=== PATIENT | female | born 1970 ===

== ENCOUNTER 2024-04-11 11:35 | Emergency (ER) | payer MEDICARE, SELFPAY ==
--- NOTE | 2024-04-11 11:40 | ED_ITS ---
HPI - General Adult General Chief complaint: Skin/Abscess/Foreign Body Stated complaint: REDDISH KENDRA ON L SIDE OF BREAST Time Seen by Provider: 04/11/24 11:40 Source: patient and EMS Mode of arrival: EMS Limitations: no limitations History of Present Illness ED Provider: Tami Dennis PA-C HPI narrative: Patient is a 53 year old assigned female at with a history of left nipple discharge presenting to the emergency department today with a rash to her left breast / chest and continued nipple discharge. Patient states that over the last 3 days she has had a left breast / chest rash that she has been treating with rubbing alcohol. Patient states that her left nipple has also been having bloody discharge and she was supposed to follow up with someone to rule out breast cancer but the appointment was cancelled. Patient denies any dizziness, lightheadedness, abdominal pain, nausea, vomiting, fever, chills, blurry vision, double vision, loss of vision, chest pain, difficulty breathing, shortness of breath, back pain, night sweats, pain with urination, increased urinary frequency, increased urinary urgency, blood in her urine or stool, syncope or a near syncopal episode, recent trauma or falls, bowel incontinence, bladder incontinence, or any other complaints at this time. Relieving factors: none Exacerbating factors: none Related Data Previous Rx's ?Medication ?Instructions ?Recorded prednisone 20 mg tablet 20 mg PO DAILY 7 days #7 tabs 04/11/24 valacyclovir 1 gram tablet 1,000 mg PO TID 7 days #21 tabs 04/11/24 Allergies Allergy/AdvReac Type Severity Reaction Status Date / Time bee pollen [bee stings] Allergy Hives Verified 04/11/24 11:51 Review of Systems 2 Constitutional: Constitutional: Reports no additional constitutional complaints, Denies chills, Denies fever(s) and Denies night sweats Eyes: Eyes: Reports no additional eye complaints, Denies blurry vision, Denies change in vision, Denies diplopia, Denies eye discharge, Denies loss of vision and Denies eye pain ENT: Denies dizziness Cardiovascular: Cardiovascular: Reports no additional cardiovascular complaints, Denies chest pain, Denies lightheadedness, Denies Loss of Consciousness and Denies dyspnea Respiratory: Respiratory: Reports no additional respiratory complaints and Denies dyspnea Gastrointestinal: Gastrointestinal: Reports no additional gastrointestinal complaints, Denies abdominal pain, Denies melena, Denies hematochezia, Denies change in bowel habits and Denies change in stool character Genitourinary: Genitourinary: Denies hematuria, Denies urinary frequency, Denies dysuria, Denies urinary incontinence, Denies urinary hesitancy and Denies urinary urgency Musculoskeletal: Musculoskeletal: Reports no additional musculoskeletal complaints, Denies numbness and Denies tingling Integumentary/Breasts: Comments: left breast rash left nippled discharge Neurologic: Denies dizziness, Denies loss of vision, Denies numbness and Denies tingling Psychiatric: Psychiatric: Reports no additional psychiatric complaints Endocrine: Endocrine: Reports no additional endocrine complaints Hematologic/Lymphatic: Hematologic/Lymphatic: Reports no additional hematologic/lymphatic complaints Allergic/Immunologic: Allergic/Immunologic: Reports no additional allergic/immunologic complaints PMFSH Past Medical History Attestation statement: The following information was validated with the patient. Source: old records reviewed and nursing notes reviewed Social History Social History Advance Directives: No Advance Directives Information Provided: No Physical Exam ED Vital Signs: Vital Signs - 24 hr 04/11/24 11:48 04/11/24 14:07 Temperature 98.0 F 98.0 F Pulse Rate 84 84 Respiratory Rate 16 16 Blood Pressure 92/63 92/63 Pulse Oximetry 100 100 Oxygen Delivery Method Room Air Room Air BMI result Body Mass Index 20.7 Const General: cooperative, no acute distress, alert and awake Nutritional Appearance: well nourished Orientation/consciousness: patient oriented x3 Limitations: no limitations [facility] Head: Yes normal to inspection and Yes atraumatic Ears: hearing grossly normal bilaterally and external ears normal General nose exam: Normal external nose present, no nasal discharge noted and no epistaxis Face and sinus: Yes normal facial exam, No abrasion and No laceration Mouth: Normal oral and palatal mucosa present, no drooling and no muffled voice Eyes General: appearance normal, both eyes and all related structures Periorbital: periorbital findings normal Eyelids: Yes eyelids normal Conjunctivae: conjunctivae normal Pupils: Equal, round and reactive pupils present EOM: EOMs intact bilaterally Neck Neck: Yes normal visual inspection, Yes full ROM and Yes no lymphadenopathy Chest Chest/axillae images: 2 1. herpetic type rash Resp Effort & Inspection: normal respiratory effort and able to speak in complete sentences GI Inspection: Yes normal to inspection Neuro General: patient oriented x3 and moves all extremities Cranial nerves: Yes Equal, round and reactive pupils present Cognition (Neuro): normal cognition Extrem General: Yes normal to inspection, Yes full ROM and Yes capillary refill normal Psych Appearance: grossly normal Mental Status: mental status grossly normal Affect: normal affect Attitude: cooperative Thought process: Normal thought process present Thought content: Normal thought content present Insight: Good insight present (Psych) Medications Administered Discontinued Medications Generic Name Dose Route Start Last Admin Trade Name Primo PRN Reason Stop Dose Admin Prednisone 60 mg 04/11/24 13:06 04/11/24 13:18 Prednisone 20 Mg Tablet PO 04/11/24 13:07 60 mg ONCE ONE Administration Valacyclovir HCl 1,000 mg 04/11/24 13:06 04/11/24 13:17 Valacyclovir Hcl 1,000 Mg Tablet PO 04/11/24 13:07 1,000 mg ONCE ONE Administration Medical Decision Making Medical Decision Making MDM Narrative: Patient is a 53 year old assigned female at with a history of left nipple discharge presenting to the emergency department today with a left breast rash and left nipple discharge. Patient's physical exam showed a rash to the left breast consistent with shingles. Patient's physical examination was done with a lining parts sewer present. I explained my physical exam findings to the patient. I answered all questions asked by the patient. I stressed the importance of the patient taking her medication as directed (either prescribed or as the over the counter packaging recommends). I stressed the importance of the patient following up with her primary care provider. I stressed the importance of the patient returning to the emergency department immediately if her symptoms were to worsen or if she were to develop any dizziness, shortness of breath, difficulty breathing, chest pain, blurry vision, loss of vision, nausea, vomiting, abdominal pain, fever, chills, back pain, or any other complaints. Patient verbalized agreement and understanding with this treatment plan and discharge. Differential Diagnosis Differential Diagnoses: The differential diagnosis associated with the presentation includes Rash Shingles Breast cancer Admission/Observation Consideration of admission/observation: Escalation of care including admission/observation considered Patient would have been admitted to the hospital had her clinical presentation warranted hospital admission. Prescription Management I considered prescription management with: Antiviral (patient prescribed valtrex) Discharge Plan Discharge Clinical Impression: Shingles, Discharge from nipple Patient Disposition: Home, Self-Care Instructions: Shingles (ED), Nipple Discharge (ED) Additional Instructions: Your rash is consistent with shingles. However, the discharge from your nipple is abnormal and concerning for breast cancer. Follow up with a primary care provider and a general surgeons office. Return to the emergency department immediately if your symptoms worsen or if you develop any dizziness, shortness of breath, difficulty breathing, chest pain, blurry vision, loss of vision, nausea, vomiting, abdominal pain, fever, chills, back pain, or any other complaints. Prescriptions: New valacyclovir 1 gram tablet 1,000 mg PO TID 7 Days Qty: 21 0RF prednisone 20 mg tablet 20 mg PO DAILY 7 Days Qty: 7 0RF Referrals: [facility] [place] General [facility]geons [Provider Group] (Call to establish and follow up with a general surgeon. ) [facility] [place] [facility] [Provider Group] (Call to establish and follow up with a primary care provider. If you already have a primary care provider, please follow up with them.) [facility] [place] [facility], [place] [Provider Group] (Call to establish and follow up with a primary care provider. If you already have a primary care provider, please follow up with them.) [facility] [place] [facility],Yulissa [Provider Group] (Call to establish and follow up with a primary care provider. If you already have a primary care provider, please follow up with them.) Interventions: ED Discharge Assessment Last Done: 04/11/24 14:07 Discharge Date/Time: 04/11/24 14:09 Print Language: Kazakh
[2024-04-11 11:45] VITALS: BP 104/80; PULSE 98; O2SAT 98
[2024-04-11 11:48] VITALS: BP 92/63; PULSE 84; RESP 16; TEMP 36.7; O2SAT 100; BMI 20.7
[2024-04-11] MEDS: valACYclovir HCL 1,000 MG TABLET 1000 MG PO (13:17)
[2024-04-11] MEDS: predniSONE 20 MG TABLET 60 MG PO (13:18)
--- NOTE | 2024-04-11 14:04 | PC.NURSE ---
Upon discharge pt verbalizes she has no money to get prescriptions. Attempt to get pt prescription was tried but it would not get here before pt's ride which was through [facility] shuttle. PT Verbalizes that was fine and to send it to [facility] [address] [facility]. PT escorted to waiting room upon discharge and instructions given on what to do when ride arrived provided as well.
[2024-04-11 14:07] VITALS: BP 92/63; PULSE 84; RESP 16; TEMP 36.7; O2SAT 100
== END 2024-04-11 14:09 | disposition home or self-care (01) ==
PROVIDERS: Emergency Provider Emergency Medicine
DX: B02.9 Zoster without complications (principal); N64.52 Nipple discharge
CPT/HCPCS: 99282; 99283